=== PATIENT | female | born 1980 | race Caucasian/White ===

== ENCOUNTER 2021-12-13 18:48 | Emergency (ER) | payer BC, OTHER ==
[~2021-12-13] VITALS: Ht 157.5 cm; Wt 104.5 kg
[2021-12-13 18:48] VITALS: BP 125/65
[~2021-12-13 18:48] MED LIST: MOTR200T44 PO; MULTTAB20 PO; OXYC1TAB23 PO
[2021-12-13] MEDS ORDERED: TAMS1CAP17 (19:01)
[2021-12-13] MEDS ORDERED: NITR100C2 (19:01)
[2021-12-13] MEDS ORDERED: FOSF3PAC2 (19:01)
[2021-12-13] MEDS ORDERED: ONDA-83 (19:01)
== END 2021-12-13 19:38 | disposition left against medical advice (07) ==
LOC: M ED 18:48
DX: Z53.21 Procedure and treatment not carried out due to patient leaving prior to being seen by health care provider (principal)

== ENCOUNTER → 2022-10-04 | Outpatient (REF) | payer OTHER ==
[~2022-10-04] MED LIST changes: +FOSF3PAC2; +NITR100C2; +ONDA-83; +TAMS1CAP17
== END ==
LOC: M PLALAB 09:13
PROVIDERS: ATTEND Advanced Practice Midwife
DX: Z12.4 Encounter for screening for malignant neoplasm of cervix (principal)
CPT/HCPCS: 87624; G0123

== ENCOUNTER → 2023-03-15 | Outpatient (CLI) | payer BC, OTHER | LOC: M WHC 07:28 | PROVIDERS: ATTEND Advanced Practice Midwife | DX: Z12.31 Encounter for screening mammogram for malignant neoplasm of breast (principal) ==

== ENCOUNTER → 2024-08-20 | Outpatient (CLI) | payer BC, OTHER | LOC: M WHC 08:15 | PROVIDERS: ATTEND Advanced Practice Midwife | DX: Z12.31 Encounter for screening mammogram for malignant neoplasm of breast (principal) ==

== ENCOUNTER → 2024-08-20 | Outpatient (REF) | payer BC, OTHER ==
[2024-08-22 19:47] LABS: HPV APTIMA Not Detected (Not Detected)
== END ==
LOC: M PLALAB 09:32
PROVIDERS: ATTEND Advanced Practice Midwife
DX: Z12.4 Encounter for screening for malignant neoplasm of cervix (principal)